=== PATIENT | male | born 1930 | race Caucasian/White ===

== ENCOUNTER → 2018-01-21 | Outpatient (CLI) | payer MEDICARE | END | disposition home or self-care (01) | LOC: RAD 11:55 | DX: R05 Cough (principal); R53.1 Weakness; R06.02 Shortness of breath | CPT/HCPCS: 71046 ==

== ENCOUNTER → 2018-03-09 | Outpatient (CLI) | payer MEDICARE ==
[2018-03-09] MEDS: IOHEXOL 240 MG/ML 50ML VIAL. PO (09:48)
[2018-03-09] MEDS: IOHEXOL 300 MG/ML 100ML VIAL. IV (09:49)
== END | disposition home or self-care (01) ==
LOC: CT 08:28
DX: K57.30 Diverticulosis of large intestine without perforation or abscess without bleeding (principal); N28.1 Cyst of kidney, acquired; N26.9 Renal sclerosis, unspecified; I51.7 Cardiomegaly; N40.0 Benign prostatic hyperplasia without lower urinary tract symptoms; M48.061 Spinal stenosis, lumbar region without neurogenic claudication; J98.11 Atelectasis
CPT/HCPCS: 74177; Q9966; Q9967

== ENCOUNTER → 2018-09-07 | Outpatient (CLI) | payer MEDICARE ==
--- NOTE | 2018-09-07 14:38 | CARD ---
MR#: [id number] Date of Study: 09/07/2018 Ordering Physician: LORRIE REBOLLAR, Referring Physician: LORRIE REBOLLAR Tech: Coretta Guerrero RDCS APPROVED REPORT EXAM: Two-dimensional and M-mode echocardiogram with Doppler and color Doppler. Other Information Quality : GoodHR: 52bpm Rhythm : Bradycardia INDICATION Cardiomyopathy 2D DIMENSIONS RVDd2.9 (2.9-3.5cm)Left Atrium(2D)4.5 (1.6-4.0cm) IVSd1.3 (0.7-1.1cm)Aortic Root(2D)3.2 (2.0-3.7cm) LVDd4.8 (3.9-5.9cm)LVOT Diameter2.1 (1.8-2.4cm) PWd1.3 (0.7-1.1cm)LVDs4.4 (2.5-4.0cm) FS (%) 9.3 %SV22.6 ml LVEF(%)20.5 (>50%) M-Mode DIMENSIONS Left Atrium(MM)4.72 (2.5-4.0cm)Aortic Root3.29 (2.2-3.7cm) Aortic Valve AoV Peak Juan.208.8cm/sAoV VTI48.2cm AO Peak GR.16.6mmHgLVOT Peak Juan.77.9cm/s AO Mean GR.11mmHgAVA (VMAX)1.29cm2 COURT (VTI)1.30cm2 Mitral Valve MV E Thacrrmm52.6cm/sMV E Peak Gr.94mmHg MV DECEL HQRH204alBO A Uemvjwyr25.9cm/s E/A Ratio2.1MV A Kwihrbug40ru Pulmonary Valve PV Peak Bswgnopd04.3cm/s Tricuspid Valve TR P. Ojiitmwl095ab/sRAP RIFGHXEK0fzAz TR Peak Gr.49pqOkPZKS70ezAy Pulmonary Vein S1 Cmouoyoc98.0cm/sD2 Nbyxjkfp72.1cm/s PVa sqqrygqf28atwv LEFT VENTRICLE The left ventricle is normal size. There is mild concentric left ventricular hypertrophy. The left ve ntricular ejection fraction is severely impaired. The Ejection Fraction is 20-25%. There is severe gl obal hypokinesis of the left ventricle. Transmitral Doppler flow pattern is Grade IV-fixed restrictiv e diastolic dysfunction. Pacer or ICD lead noted in LV/LA. RIGHT VENTRICLE The right ventricle is normal size. There is normal right ventricular wall thickness. Systolic functi on is mildly to moderately reduced. ATRIA The left atrium is moderately dilated. The right atrium is moderately dilated. The interatrial septum is intact with no evidence for an atrial septal defect or patent foramen ovale as noted on 2-D or Do ppler imaging. AORTIC VALVE The aortic valve is moderately to severely calcified. The aortic valve is probably trileaflet. Dopple r and Color Flow revealed no significant aortic regurgitation. There is mild valvular aortic stenosis . Calculated aortic valve area is 1.3 cm2 with maximum pressure gradient of 17 mmHg and mean pressure gradient of 11 mmHg. MITRAL VALVE The mitral valve is normal in structure and function. There is no evidence of mitral valve prolapse. There is no mitral valve stenosis. Doppler and Color-flow revealed mild mitral regurgitation. TRICUSPID VALVE The tricuspid valve is normal in structure and function. Doppler and Color Flow revealed trace tricus pid regurgitation. The PA pressure was estimated at 38 mmHg. There is no tricuspid valve prolapse or vegetation. PULMONIC VALVE The pulmonary valve is normal in structure and function. Doppler and Color Flow revealed trace pulmon ic valvular regurgitation. There is no pulmonic valvular stenosis. GREAT VESSELS The aortic root is normal in size. The ascending aorta is normal in size. The IVC is normal in size a nd collapses >50% with inspiration. PERICARDIAL EFFUSION There is no evidence of significant pericardial effusion. Critical Notification Critical Value: No <Conclusion> The left ventricular ejection fraction is severely impaired. The Ejection Fraction is 20-25%. The left atrium is moderately dilated. There is mild valvular aortic stenosis. Mild mitral regurgitation. Trace tricuspid regurgitation. The PA pressure was estimated at 38 mmHg. There is no evidence of significant pericardial effusion. Signed by : Lorrie Rebollar, Electronically Approved : 09/07/2018 14:37:04
== END | disposition home or self-care (01) ==
LOC: ECHO 12:34
PROVIDERS: ATTEND Internal Medicine Cardiovascular Disease
DX: I08.0 Rheumatic disorders of both mitral and aortic valves (principal)
CPT/HCPCS: 93306

== ENCOUNTER 2018-09-20 13:02 | Emergency (ER) | payer MEDICARE ==
[~2018-09-20] VITALS: Ht 167.6 cm; Wt 61.2 kg
[2018-09-20 13:12] VITALS: BP 143/73
[2018-09-20] MEDS ORDERED: 0.9 % SOD CHL for STERILE FIELD 10 ML DISP.SYRIN. ONE (13:49)
[2018-09-20 14:23] LABS: BILIRUBIN,URINE NEGATIVE (NEG); CLARITY,URINE CLOUDY; COLOR,URINE YELLOW; NITRITE,URINE NEGATIVE (NEG); PH,URINE 6.5; PROTEIN,URINE 30 mg/dL (NEG-TRACE); UROBILINOGEN,URINE 0.2 mg/dL (0.2 mg/dL)
[2018-09-20 14:32] LABS: BACTERIA,URINE MANY /HPF (0-FEW); WBC,URINE >40 /HPF (0-4)
[2018-09-20] MEDS ORDERED: DOXY100T PO ×2 (14:57→16:11)
--- NOTE | 2018-09-20 14:58 | PHYS DOC ---
Past Medical History Past Medical History: CHF Past Surgical History: Other Additional Past Surgical Histo: back, cardiac stent x 2 Alcohol Use: None Drug Use: None Adult General Chief Complaint Chief Complaint: URINE CATHETER PROBLEM HPI HPI Patient is a 87 year old [f__sex] who presents with [] Review of Systems Review of Systems Constitutional: Denies fever or chills [] Eyes: Denies change in visual acuity, redness, or eye pain [] HENT: Denies nasal congestion or sore throat [] Respiratory: Denies cough or shortness of breath [] Cardiovascular: No additional information not addressed in HPI [] GI: Denies abdominal pain, nausea, vomiting, bloody stools or diarrhea [] : Denies dysuria or hematuria [] Musculoskeletal: Denies back pain or joint pain [] Integument: Denies rash or skin lesions [] Neurologic: Denies headache, focal weakness or sensory changes [] Endocrine: Denies polyuria or polydipsia [] All other systems were reviewed and found to be within normal limits, except as documented in this note. Current Medications Current Medications Current Medications Medications (Trade) Dose Ordered Sig/Ting Start Time Stop Time Status Last Admin Dose Admin Sodium Chloride (NORMAL SALINE FLUSH for STERILE FIELD) 10 ml STK-MED ONCE 09/20/18 13:49 09/20/18 13:51 DC Allergies Allergies Allergies Coded Allergies Type Severity Reaction Last Updated Verified No Known Drug Allergies 03/16/18 No Physical Exam Physical Exam Constitutional: Well developed, well nourished, no acute distress, non-toxic appearance. [] HENT: Normocephalic, atraumatic, bilateral external ears normal, oropharynx moist, no oral exudates, nose normal. [] Eyes: PERRLA, EOMI, conjunctiva normal, no discharge. [] Neck: Normal range of motion, no tenderness, supple, no stridor. [] Cardiovascular:Heart rate regular rhythm, no murmur [] Lungs & Thorax: Bilateral breath sounds clear to auscultation [] Abdomen: Bowel sounds normal, soft, no tenderness, no masses, no pulsatile masses. [] Skin: Warm, dry, no erythema, no rash. [] Back: No tenderness, no CVA tenderness. [] Extremities: No tenderness, no cyanosis, no clubbing, ROM intact, no edema. [] Neurologic: Alert and oriented X 3, normal motor function, normal sensory function, no focal deficits noted. [] Psychologic: Affect normal, judgement normal, mood normal. [] Current Patient Data Vital Signs Vital Signs Date Time Temp Pulse Resp B/P (MAP) Pulse Ox O2 Delivery O2 Flow Rate FiO2 09/20/18 13:12 97.8 90 18 143/73 (96) 100 Room Air 97.8 Lab Values Laboratory Tests Test 09/20/18 14:13 Urine Collection Type U cath Urine Color Yellow Urine Clarity Cloudy Urine pH 6.5 Urine Specific Smiley 1.025 Urine Protein 30 mg/dL (NEG-TRACE) Urine Glucose (UA) Negative mg/dL (NEG) Urine Ketones (Stick) Negative mg/dL (NEG) Urine Blood Trace (NEG) Urine Nitrite Negative (NEG) Urine Bilirubin Negative (NEG) Urine Urobilinogen Dipstick 0.2 mg/dL (0.2 mg/dL) Urine Leukocyte Esterase Large (NEG) Urine RBC 1-2 /HPF (0-2) Urine WBC >40 /HPF (0-4) Urine Transitional Epithelial Cells Occ /LPF Urine Bacteria Many /HPF (0-FEW) EKG EKG [] Radiology/Procedures Radiology/Procedures [] Course & Med Decision Making Course & Med Decision Making Pertinent Labs and Imaging studies reviewed. (See chart for details) [] Dragon Disclaimer Dragon Disclaimer This electronic medical record was generated, in whole or in part, using a voice recognition dictation system. Departure Departure Impression: Primary Impression: Urinary tract infection Additional Impressions: Catheter (urine) change required Hall catheter problem Disposition: 01 HOME, SELF-CARE Condition: STABLE Referrals: MALLORY LARES (PCP) Patient Instructions: Catheter-Associated Urinary Tract Infection FAQs - TAYLOR, Urinary Tract Infection, [id number] Additional Instructions: Fill the prescription and use as directed. Follow up with your PCP next week. return to the ER if symptoms worsen. Scripts Doxycycline Hyclate (DOXYCYCLINE HYCLATE) 100 Mg Tablet 1 TAB PO BID for 10 Days, #20 TAB 0 Refills Prov: ESHASergeJED APRN 09/20/18 Problem Qualifiers Primary Impression: Urinary tract infection Urinary tract infection type: catheter-associated UTI Indwelling urinary catheter type: indwelling urethral catheter Encounter type: initial encounter Qualified Codes: T83.511A - Infection and inflammatory reaction due to indwelling urethral catheter, initial encounter; N39.0 - Urinary tract infection, site not specified Additional Impressions: Hall catheter problem Encounter type: initial encounter Qualified Codes: T83.9XXA - Unspecified complication of genitourinary prosthetic device, implant and graft, initial encounter JED MANCERA [employer]ER Sep 20, 2018 14:58
== END 2018-09-20 15:35 | disposition home or self-care (01) ==
LOC: ER 13:02
DX: T83.098A Other mechanical complication of other urinary catheter, initial encounter (principal); N39.0 Urinary tract infection, site not specified
CPT/HCPCS: 51702; 81001; 87086; 99284

== ENCOUNTER 2018-12-03 11:31 | Observation (INO) | payer MEDICARE ==
[~2018-12-03] VITALS: Ht 157.5 cm; Wt 54.9 kg
[2018-12-03] VITALS (11 sets, daily range): BP systolic 93–127; BP diastolic 50–78
[~2018-12-03 11:31] MED LIST: DOXY100T PO; HYDROmorphone 2 MG/ML VIAL IV PRN; IV RINGERS,LACTATED 1000ML 1,000 ML IV SCH; LIDOCAINE 1% PF 2 ML VIAL. ID PRN; MORPHINE SULFATE 2 MG/ML VIAL. IV PRN; ONDANSETRON PF 4 MG/2 ML VIAL. IV PRN; PROCHLORPERAZINE 10 MG/2 ML VIAL. IV PRN; fentaNYL PF VIAL 100 MCG/2 ML VIAL IV PRN
[2018-12-03] MEDS ORDERED: LIDOCAINE 2% JELLY 6ML IN APPLICATOR. ONE (11:49)
[2018-12-03] MEDS ORDERED: ceFAZolin 2GM PREMIX 2 GM/50 ML BAG IV ONE (12:00)
[2018-12-03] MEDS ORDERED: METO-269 PO (12:13)
[2018-12-03] MEDS ORDERED: LOSA-73 PO (12:14)
[2018-12-03] MEDS ORDERED: FINA5TAB4 PO (12:14)
[2018-12-03] MEDS ORDERED: CLOP75TA PO (12:15)
[2018-12-03] MEDS ORDERED: ATOR40TA59 PO (12:16)
[2018-12-03] MEDS ORDERED: SPIR25TA5 PO (12:17)
[2018-12-03] MEDS ORDERED: ASPI81TA50 PO (12:17)
[2018-12-03] MEDS ORDERED: LEVO25TA4 PO (12:18)
[2018-12-03] MEDS ORDERED: TAMS0.4C97 PO (12:19)
[2018-12-03] MEDS ORDERED: PROPOFOL 20 ML IV ONE (12:54)
[2018-12-03] MEDS ORDERED: ONDANSETRON PF 4 MG/2 ML VIAL. ONE (12:54)
[2018-12-03] MEDS ORDERED: LIDOCAINE 2% PF 5 ML VIAL. ONE (12:54)
[2018-12-03] MEDS ORDERED: DEXAMETHASONE SOD PHOS 20 MG/5 ML VIAL. ONE (12:54)
[2018-12-03] MEDS ORDERED: fentaNYL PF VIAL 100 MCG/2 ML VIAL ONE (13:52)
[2018-12-03] MEDS ORDERED: SEVOFLURANE 31 TO 60 MINUTES. IH ONE (14:13)
--- NOTE | 2018-12-03 14:35 | PDOC4 ---
OPERATIVE NOTE Date: Date: Dec 03, 2018 Pre-Op Diagnosis: BPH, urinary retention Post-Op Diagnosis: same Procedure Performed: cystoscopy, Greenlight laser vaporization of prostate Surgeon: Chayo Telles MD Anesthesia Type: general Blood Loss: 0 Specimans Obtained: none Findings: lateral lobe prostate enlargement. elevated bladder neck Complications: none Operative Note: see dictation CHAYO TELLES MD Dec 03, 2018 14:35
[2018-12-03] MEDS: IV DEXTROSE 5 %-0.45 % NACL 1,000 ML IV SCH ×2 (14:38→23:42)
[2018-12-03] MEDS ORDERED: ACETAMINOPHEN 325 MG TABLET. PO PRN (14:45)
[2018-12-03] MEDS ORDERED: ONDANSETRON PF 4 MG/2 ML VIAL. IV PRN (14:45)
--- NOTE | 2018-12-03 15:03 | OP ---
DATE OF SURGERY: 12/03/2018 SURGEON: Chayo Telles MD SHOES SALESPERSON: None. PREOPERATIVE DIAGNOSIS: Benign prostatic hypertrophy with urinary obstruction. POSTOPERATIVE DIAGNOSIS: Benign prostatic hypertrophy with urinary obstruction. PROCEDURE PERFORMED: Cystoscopy with GreenLight laser of the prostate. ANESTHESIA TYPE: General. INDICATIONS FOR PROCEDURE: This is an 88-year-old male, who has had urinary retention since 03/2018, presumably due to enlarged prostate. After discussion of risks, benefits and alternatives, he elected to undergo the above procedure. We discussed the option of a suprapubic tube prior to surgery, but he declined. DESCRIPTION OF PROCEDURE: The patient was taken to the operating room where general anesthesia was induced. He was placed in the dorsal lithotomy position and sterilely prepped and draped. A timeout was performed. A flexible cystoscope was advanced through the urethra and into the bladder. There was lateral lobe enlargement of the prostate and an elevated bladder neck. The prostate did not bulge into the bladder. There was no median lobe. There was moderate to severe bladder trabeculation. No tumors or stones noted. Both ureteral orifices were identified. The scope was removed and then a rigid cystoscope was introduced. The prostate was then vaporized starting at the bladder neck and then involving the lateral lobes back to the prostate apex. A total of 61,000 joules of energy was used. The prostate and bladder neck was wide open without obstruction at the end of the procedure. There was no bleeding noted with the flow turned off. Both ureteral orifices appeared normal and without injury. The scope was removed. A Hall catheter was placed with drainage of light pink urine. The patient was then awakened and taken to the recovery room in stable condition. BLOOD LOSS: None. COMPLICATIONS: None. SPECIMEN: None. CHAYO TELLES MD DR: SIENA/celia JOB#: [id number] / [id number]
[2018-12-03] MEDS: DOCUSATE SODIUM 100 MG CAPSULE. PO SCH (20:57)
--- NOTE | 2018-12-03 22:41 | NUR ---
Patient home medications has been reconciled, but not restarted This RN called MD at this time to restart home medications. Orders received.
[2018-12-03] MEDS ORDERED: ATORVASTATIN CALCIUM 40 MG TABLET. PO SCH (23:00)
[2018-12-03] MEDS: TAMSULOSIN 0.4 MG CAP.ER.24H. PO SCH (23:30)
[2018-12-04 03:11] VITALS: BP 95/53
[2018-12-04] MEDS ORDERED: LEVOTHYROXINE 25 MCG TABLET. PO SCH (06:00)
[2018-12-04 07:00] VITALS: BP 92/53
[2018-12-04] MEDS: DOCUSATE SODIUM 100 MG CAPSULE. PO SCH (08:18)
[2018-12-04] MEDS: TAMSULOSIN 0.4 MG CAP.ER.24H. PO SCH (08:18)
[2018-12-04] MEDS ORDERED: CLOPIDOGREL BISULFATE 75 MG TABLET PO SCH (09:00)
[2018-12-04] MEDS ORDERED: SPIRONOLACTONE 25 MG TABLET PO SCH (09:00)
[2018-12-04] MEDS ORDERED: FINASTERIDE 5 MG TABLET. PO SCH (09:00)
[2018-12-04] MEDS ORDERED: ASPIRIN ENTERIC COATED 81 MG TABLET.DR. PO SCH (09:00)
[2018-12-04] MEDS ORDERED: METOPROLOL SUCC 24HR ER 50 MG TAB.ER.24H. PO SCH (09:00)
[2018-12-04] MEDS ORDERED: LOSARTAN POTASSIUM 25 MG TABLET. PO SCH (09:00)
--- NOTE | 2018-12-04 10:08 | NUR ---
SW following. Discussed with RN, RN advised pt is from home alone and gets around fine. RN anticipates pt will discharge home today with self care.
[2018-12-04 11:00] VITALS: BP 89/52
--- NOTE | 2018-12-04 11:26 | PDOC ---
RODRI DANIELS Chadd [employer] ASSEM[employer]ER 12/04/18 1126: SUBJECTIVE Subjective Patient had a good night, no pain. Catheter is not too bothersome to him. Would like to go home if possible. OBJECTIVE Objective Physical Exam: General appearance: Alert and Oriented Head: Normocephalic, without obvious abnormality Eyes: conjunctivae/corneas clear. PERRL, EOM's intact. Fundi benign Lungs: Regular respirations, non labored breathing Abdomen: soft, non-tender. No masses, no organomegaly Pelvic: + Hall catheter in place draining yellow urine with light red tinge. Device in good working order. Vital Signs Vital Signs Date Time Temp Pulse Resp B/P (MAP) Pulse Ox O2 Delivery O2 Flow Rate FiO2 12/04/18 08:17 58 92/53 12/04/18 08:14 58 92/53 12/04/18 08:00 Room Air 12/04/18 07:00 97.8 58 16 92/53 (66) 98 Room Air 97.8 12/04/18 03:11 97.4 58 20 95/53 (67) 99 Room Air 97.4 12/03/18 22:59 98.2 71 18 93/50 (64) 96 Room Air 98.2 12/03/18 20:12 71 106/62 (77) Room Air 12/03/18 20:05 Room Air 12/03/18 19:31 97.4 69 18 95/58 (70) 98 Room Air 97.4 12/03/18 18:00 67 18 121/72 (88) 100 Room Air 12/03/18 17:43 Room Air 12/03/18 17:30 64 18 113/78 (90) 98 Room Air 12/03/18 17:00 82 18 119/50 (73) 98 Room Air 12/03/18 16:31 53 18 127/69 (88) 98 Room Air 12/03/18 16:16 53 18 122/52 (75) 98 Room Air 12/03/18 16:01 67 18 117/62 (80) 98 Room Air 12/03/18 15:46 62 18 115/61 (79) 95 Room Air 12/03/18 15:32 97.7 69 18 110/68 (82) 95 Room Air 97.7 12/03/18 15:14 97.7 68 29 114/72 98 Room Air 97.7 12/03/18 15:00 97.3 68 18 122/71 95 Room Air 97.3 12/03/18 14:45 97.3 68 22 114/72 98 Simple Mask 8 97.3 12/03/18 14:40 Mask 8 12/03/18 14:28 97.3 74 20 129/74 100 Simple Mask 8 97.3 12/03/18 12:23 97.8 80 16 117/63 96 Room Air 97.8 I & O Intake and Output 12/04/18 06:59 Intake Total 2016 ml Output Total 575 ml Balance 1441 ml Intake Oral 730 ml IV Total 1286 ml Output Urine Total 575 ml PHYSICAL EXAM Physical Exam General appearance: Alert and Oriented Head: Normocephalic, without obvious abnormality Eyes: conjunctivae/corneas clear. PERRL, EOM's intact. Fundi benign Lungs: Regular respirations, non labored breathing Abdomen: soft, non-tender. No masses, no organomegaly Pelvic: + Hall catheter in place draining yellow urine with light red tinge. Device in good working order. ASSESSMENT/PLAN Assessment/Plan Patient may discharge home. A follow up appointment has been arranged for him to have a voiding trial on and 1140 am. Appointment card given to patient. Nursing may teach catheter care and provide additional supplies to patient as requested for catheter care. Problems: (1) BPH w urinary obs/LUTS (2) Catheter (urine) change required CHAYO TELLES MD 12/06/18 1646: ASSESSMENT/PLAN Assessment/Plan Agree with assessment and plan. RODRI DANIELS APRN Dec 04, 2018 11:26 CHAYO TELLES MD Dec 06, 2018 16:46
--- NOTE | 2018-12-04 11:29 | DISCH ---
DISCHARGE INSTRUCTIONS Condition on Discharge Condition on Discharge: Stable Activity After Discharge Activity Instructions for Disc: Activity as tolerated Driving Instructions after Dis: Do not drive today Weight Bearing Status after Di: As tolerated Diet after Discharge Diet after Discharge: Regular Diet Texture: Regular Swallowing Supervision: None needed Contacting the DRMichael after DC Call your doctor for: Concerns you may have (Fever greater than 100, if catheter not draining or if you have catheter related questions. ) Follow-Up Follow Up With: Dr. Parsons on 12/10 @11:40. Treatment/Equipment after DC Adaptive Equipment Issued: None RODRI DANIELS APRN Dec 04, 2018 11:29
[2018-12-04] MEDS ORDERED: ACET500T68 PO (11:33)
[2018-12-04] MEDS ORDERED: DOCU-109 PO (11:49)
[2018-12-04] MEDS ORDERED: ACET325T9 PO (11:49)
[2018-12-04] MEDS ORDERED: ONDA4VIA7 PO (11:49)
--- NOTE | 2018-12-04 13:22 | NUR ---
Discharge instructions and belongings reviewed with patient, verbalized understanding. Patient was escorted out via ambulation by this nurse and accompanied with 2friends.
== END 2018-12-04 13:25 | disposition home or self-care (01) ==
LOC: SURG 11:31 → 4 NORTH 15:36
PROVIDERS: ADMIT Urology; ATTEND Urology
DX: N40.1 Benign prostatic hyperplasia with lower urinary tract symptoms (principal); R33.8 Other retention of urine; E03.9 Hypothyroidism, unspecified; E78.00 Pure hypercholesterolemia, unspecified
CPT/HCPCS: 52648; G0378; G0379; J0696; J1100; J2001; J2405; J2704; J3010